=== PATIENT | male | born 1940 | race Caucasian/White ===

== ENCOUNTER 2018-08-14 17:40 | Observation (INO) | payer MEDICARE, SELFPAY ==
[2018-08-14 17:44] VITALS: BP 116/63; PULSE 88; RESP 16; TEMP 36.9; O2SAT 96
--- NOTE | 2018-08-14 18:16 | DI.RAD.S_ITS ---
PROCEDURE: XR CHEST 2V INDICATIONS: pain TECHNIQUE: 2 views of the chest were acquired. COMPARISON: Left hip series from earlier same day. FINDINGS: Surgical changes and devices: None. Lungs and pleura: Lungs are clear. Likely small left apical pneumothorax is not well-visualized on this study. This was more conspicuous on comparison rib series. Mediastinum: Mediastinal contours are normal. Heart size is normal. Bones and chest wall: No suspicious bony abnormalities. Minimally displaced left eighth, ninth, and 10th rib fractures are better seen on dedicated rib series. Soft tissues appear unremarkable. IMPRESSION: Left eighth, ninth, and 10th rib fractures as well as likely small left apical pneumothorax are better evaluated and visualized on comparison left rib series from same day. Please see separate report for further details. Lungs are otherwise clear. Dictated by: Jaylen Wallis M.D. on 08/14/2018 at 19:48 Approved by: Jaylen Wallis M.D. on 08/14/2018 at 19:50
--- NOTE | 2018-08-14 18:42 | DI.RAD.S_ITS ---
PROCEDURE: XR RIBS LT 2V INDICATIONS: pain TECHNIQUE: 7 views of the left ribs were acquired. COMPARISON: None. FINDINGS: Surgical changes and devices: None. Bones and chest wall: Acute, minimally displaced left eighth, ninth, and 10th rib fractures. No other fractures or dislocations visualized. No suspicious bony lesions. Overlying soft tissues appear unremarkable. Lungs and pleura: The visualized lung appears clear. No pleural effusions are visible. A likely small apical left pneumothorax is visualized. IMPRESSION: Acute, minimally displaced fractures of the left eighth, ninth, and tenth ribs with likely small apical left pneumothorax. Dictated by: Jaylen Wallis M.D. on 08/14/2018 at 19:38 Approved by: Jaylen Wallis M.D. on 08/14/2018 at 19:42
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
[2018-08-14] MEDS: ACETAMINOPHEN 325 MG TABLET 650 MG PO (20:29)
--- NOTE | 2018-08-14 20:29 | DI.CT.S_ITS ---
PROCEDURE: CT CHEST WO CON INDICATIONS: rib fxs, ?pneumo on xr TECHNIQUE: Noncontrast 5 mm thick sections acquired from the pulmonary apices to the posterior costophrenic angles. 7 mm thick coronal and sagittal MIP reformats were then acquired. For radiation dose reduction, the following was used: automated exposure control, adjustment of mA and/or kV according to patient size. COMPARISON: None. FINDINGS: Image quality: Excellent. Lungs and pleura: No acute air space opacities. Small left pneumothorax predominantly noted over the lingula. No right pneumothorax. Small subpleural hematoma is overlying the site of rib fractures of the left 10th, ninth, and eighth ribs. There is a 2 cm noncalcified nodule noted on image 51, series 3 and a second noncalcified nodule, pleural-based seen on image 50, series 3. No septal thickening or nodularity. Central and peripheral airways are patent and normal in caliber. Mediastinum: Heart size is normal. Scattered atherosclerotic calcifications of the coronary arteries are noted.No pericardial effusion. No mediastinal adenopathy by size criteria. Thoracic aorta and central pulmonary arteries are normal in size. Esophagus is normal in caliber. No hiatal hernia. Bones and chest wall: No suspicious bony lesions. Diffuse osteopenia. No acute vertebral body compression fractures. Subchondral cystic changes involving both sides of the joint space of the bilateral sternoclavicular joints. No axillary or supraclavicular adenopathy by size criteria. Thyroid gland is unremarkable. Abdomen: Visualized upper abdominal solid organs and bowel loops appear normal in the absence of contrast. IMPRESSION: 1. Small left pneumothorax. 2. Left eighth, ninth, and tenth rib fractures. 3. There are two 6-mm noncalcified nodules in the left lower lobe. A followup chest CT in 6-12 months is recommended to document stability. Dictated by: Jaylen Wallis M.D. on 08/14/2018 at 21:57 Approved by: Jaylen Wallis M.D. on 08/14/2018 at 22:05
[2018-08-14] MEDS: LIDOCAINE PATCH 1 EACH ADH..PATCH TOP (20:56)
--- NOTE | 2018-08-14 20:57 | PC.NURSE ---
Large abrasion running length of spine, bruising noted Left posterior chest area.
[2018-08-14 22:35] VITALS: BMI 33.0
[2018-08-14 22:52] VITALS: BP 122/64; PULSE 72; RESP 20; O2SAT 95
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
[2018-08-14 23:39] LABS: Add Manual Diff / Slide Review NO; Basophils Absolute Auto 0 /uL (0-100); Basophils Percent Auto 0.3 % (0-2); Eosinophils Absolute Auto 0 /uL (0-450); Eosinophils Percent Auto 0.4 % (2-4); Hematocrit 49.2 % (41-53); Lymphocytes Absolute Auto 800 /uL (1100-4500); Lymphocytes Percent Auto 9.6 % (25-40); Mean Corpuscular HGB Conc 32.6 % (30-36); Mean Corpuscular Hemoglobin 30.6 PG (26-34); Monocytes Absolute Auto 600 /uL (0-900); Monocytes Percent Auto 7.5 % (3-14); Neutrophils Absolute Auto 6900 /uL (1500-7000); Neutrophils Percent Auto 82.2 % (50-75); Platelet Count 154 X10^3/uL (150-400); Red Blood Cell Count 5.24 X10^6/uL (4.5-5.9); Red Cell Distribution Width 13.8 % (11.6-14.8); White Blood Cell Count 8.4 X10^3/uL (4.5-11.0)
--- NOTE | 2018-08-14 23:40 | P.HP_ITS ---
History of Present Illness Date Patient Seen: 08/14/18 Time Patient Seen: 23:33 Chief complaint: Fell over backwards, back pain, thinks Fx rib Narrative: August Romo is a 69-year-old male patient with a history of coronary artery disease, hypertension, hyperlipidemia, diabetes and prostatic hypertrophy who presents to the ER for left chest wall following a fall on his boat. Patient provides a history having chronic ground in his boat with the deck at a steep angle on which he slipped striking his left chest on the setee. He reports the fall was accidental involve no prodromal symptoms. He denies loss consciousness or neck pain. He complains of left anterior lateral chest wall pain and sustained a whole large abrasion down his middle of his back. Reports no shortness of breath or cough. He has had no recent illness or cold symptoms, no fevers or chills, no nasal congestion or sore throat. He has had no chest pain or palpitations, denies shortness of breath cough or wheezing. He has left chest wall pain increasing with deep inspiration. He denies abdominal pain or flank pain and has no nausea vomiting, constipation or diarrhea. Has a history of prostatic hypertrophy but reports no urinary symptoms at this time. Upon arrival in the ER at 5:44 p.m. the patient was found to be afebrile with a temperature of 98.5?, heart rate of 88, blood pressure 116/63, respiratory rate of 16 and oxygen saturation 96% on room air. No labs are drawn while the patient was in the ER however did have a chest x-ray which identified fracture of the 8th 9th and 10th ribs. There was an incidental finding of 2 pleural- based 6 mm non calcified nodules left lower lobe. The patient subsequently underwent a chest CT with finding a small left pneumothorax. Dr. Good, general surgery was consulted by the ER staff who recommended no intervention for the pneumothorax. Patient is admitted related to pain management of rib fractures and monitoring of pneumothorax. Patient History Medical History Prostatic hypertrophy (Acute) CAD (coronary artery disease) (Chronic) Diabetes mellitus type II, non insulin dependent (Chronic) HTN (hypertension) (Chronic) Hyperlipidemia (Chronic) Surgical History H/O transurethral resection of prostate (Acute) Status post coronary artery stent placement (Resolved) Social History (Updated 08/14/18 @ 20:13 by Jinny Doyle PA-C) household members: children and none Smoking Status: Current every day smoker alcohol intake: current Family & Social History Social History: household members children,none Prior Living Arrangements House Safety & Behavioral: Feels Safe in Current Yes Environment Been Physically Hurt or No Threatened By a Person Suicidal Ideation Description None Tobacco & Substance use: Tobacco type cigars Smoking Status Current every day smoker alcohol intake current alcohol intake frequency 0-2 drinks per day Substance Use Type does not use Comment: The patient is presently single having been twice initially in 1984 and was a 2nd time for 6 months. Patient presently lives in a single family home and spends extended durations of time on his boat cruising. His parents are both . His father had type 1 diabetes and cardiac disease and from heart failure. His mother was a smoker and from lung cancer. He has 1 sister who 6 years ago from brain cancer. Smoking: Patient smoked 1-1/2 packs of cigarettes per day the for 20 years and then quit in 1983. For the last 4 years the patient has been smoking 1 cigar daily. Alcohol: The patient endorses consuming 1 mixed drink daily Substance use: The patient denies recreation pharmaceuticals or herbal or cannabis products. Advanced directives: The patient has no advanced directive however he wishes to be a FULL CODE. He designates his daughter to be his surrogate decision maker. Meds Home Medications Medication Instructions Recorded Confirmed Type aspirin 81 mg PO QPM 08/14/18 08/14/18 History ezetimibe 10 mg PO QPM 08/14/18 08/14/18 History hydrochlorothiazide 12.5 mg PO DAILY 08/14/18 08/14/18 History lisinopril 5 mg PO DAILY 08/14/18 08/14/18 History metformin 1,500 mg PO BID 08/14/18 08/14/18 History metoprolol tartrate 25 mg PO BID 08/14/18 08/14/18 History montelukast 10 mg PO QPM 08/14/18 08/14/18 History oxybutynin chloride 5 mg PO QPM 08/14/18 08/14/18 History rosuvastatin 40 mg PO QPM 08/14/18 08/14/18 History tamsulosin 0.4 mg PO QPM 08/14/18 08/14/18 History Allergies Allergy/AdvReac Type Severity Reaction Status Date / Time No Known Drug Allergies Allergy Verified 08/14/18 20:55 Review of Systems Review of Systems All systems reviewed & are unremarkable except as noted in HPI and below Exam Vital Signs (past 8 hours): - 08/14/18 17:44 08/14/18 22:52 Temperature 98.5 F Pulse Rate 88 72 Respiratory Rate 16 20 Blood Pressure 116/63 122/64 Pulse Oximetry 96 95 Oxygen Delivery Method Room Air Narrative Exam Narrative: GENERAL APPEARANCE: well developed, overweight male with BMI of 33.1, afebrile and in no acute distress. HEAD: Normocephalic, atraumatic, no scalp lesions. EYES: pupils equal, round, reactive to light and accommodation, sclera non- icteric, extraocular movement intact. EARS: normal external structures, no ear pain NOSE: sinuses non tender to percussion, no rhinorrhea ORAL CAVITY: mucosa moist without lesions or exudate, palate normal, tongue in midline. THROAT: normal, no erythema, no exudate, pharynx normal, uvula midline. NECK/THYROID: neck supple, no jugular venous distention, no carotid bruit, no thyromegaly, trachea midline. LYMPH NODES: no cervical or supraclavicular lymphadenopathy. SKIN: warm and dry, no suspicious lesions, no rashes, good turgor. HEART: regular rate and rhythm, S1-S2 without murmur, no rubs or gallops, brisk capillary refill, no edema LUNGS: clear to auscultation bilaterally, no coarseness crackles or wheezing, no cough present CHEST: Pain on palpation anterior axillary line over 8 9th and 10th ribs, pain with deep inspiration, lidocaine patch in place posterior left chest- repositioned, symmetrical movement, no accessory muscle use ABDOMEN: Soft, no distention, no epigastric or abdominal tenderness on palpation, no guarding or peritoneal signs, no organomegaly, no flank or suprapubic tenderness, active bowel tones. BACK: Normal curvature, large abrasion 7 cm wide extending from T4-L1 without active bleeding, no step-offs EXTREMITIES: Contusion ecchymosis base of left thumb, moves all extremities, strength is 5/5 and symmetrical, well perfused. NEUROLOGIC: AAO x4, no focal neurologic deficits, cranial nerves II-XII grossly intact , motor strength normal upper and lower extremities, sensory exam intact to light touch, hearing grossly normal to speech. PSYCH: alert, cognitive function intact, good eye contact, stable mood with congruent affect Objective Labs Result Diagrams: 08/14/18 23:26 08/14/18 23:26 Assessment & Plan Assessment & Plan narrative: The patient was initially to be discharged home following consult with General surgery the patient however complained of more pain and admission was elected for pain management and monitoring of pne umothorax. 1. Acute left rib fractures -slip and fall on a boat striking his left chest. Patient did not immediately present for care. -No complaints of shortness of breath or cough -imaging finds nondisplaced fractures the 8th 9th and 10th left lateral ribs. -lidocaine patch applied in the emergency depart. -[place] 5/325, 1-2 tablets as needed every 4 hours for pain 2. Acute Left pneumothorax -estimated pneumothorax at 5% -patient asymptomatic with no shortness of breath or cough -patient typically uses CPAP at home for obstructive sleep apnea which will not be used to prevent worsening of pneumothorax. -will monitor pulse ox and respiratory status for progression of symptoms 3. Diabetes type 2 non insulin dependant without complications, chronic -patient has home medication metformin 1500 mg twice daily. -will obtain BMP to assess renal function, obtain hemoglobin A1c. -fingerstick blood sugars AC and HS -correctional insulin low range. 4. Hypertension, chronic, stable -will continue patient's home medications of metoprolol 50 mg daily, lisinopril 5 mg daily and hydrochlorothiazide 12.5 mg daily. -no complaints of dyspnea or cough -pneumothorax on CT exam -estimate pneumothorax to be approximately 5%. General surgery consult by ER provider who recommended no intervention. -will monitor breathing and oxygen saturation 5. Hyperlipidemia, chronic, presumed stable -Will continue patient's home medications of rosuvastatin 40 mg and ezetimibe 10 mg daily The patient is admitted due to severity of symptoms and ongoing monitoring. Expected length of stay to be less than 2 midnights. Quality VTE Deep Vein Thrombosis/Pulmonary Embolism Present on Admission: No
[2018-08-14 23:48] LABS: BUN Creatinine Ratio 29.2 (6-22); Blood Urea Nitrogen 35 mg/dL (9-20); Calcium 9.6 mg/dL (8.4-10.2); Carbon Dioxide 25 mmol/L (22-32); Chloride 98 mmol/L (98-107); Estimated Glomerular Filt Rate 58.6 mL/min (>60); Glucose 226 mg/dL (80-110); HEMOLYSIS 16 (0-50); Potassium 4.2 mmol/L (3.4-5.1); Sodium 137 mmol/L (137-145)
--- NOTE | 2018-08-15 | DI.RAD.S_ITS ---
PROCEDURE: XR CHEST 1V INDICATIONS: f/u pneumo seen on CT TECHNIQUE: One view of the chest was acquired. COMPARISON: [facility], CT, CT CHEST WO CON, 08/14/2018, 21:10. [facility], CR, XR RIBS LT 2V, 08/14/2018, 18:30. [facility], CR, XR CHEST 2V, 08/14/2018, 18:28. FINDINGS: Surgical changes and devices: None. Lungs and pleura: There is a trace right apical pneumothorax seen, which is slightly smaller than on the prior plain film. An incomplete inspiratory result is noted, causing a crowded appearance to the lung markings. No focal infiltrates are seen. No pneumothorax or significant pleural effusions are seen. Mediastinum: Mediastinal contours appear normal. Heart size is normal. Bones and chest wall: Mildly displaced left anterolateral rib fractures are again seen. No suspicious bony lesions. Overlying soft tissues appear unremarkable. IMPRESSION: Trace left apical pneumothorax, which is slightly decreased in size compared to the prior plain film. Left posterior lower rib fractures are seen. Dictated by: Robby Caraballo M.D. on 08/15/2018 at 8:52 Approved by: Robby Caraballo M.D. on 08/15/2018 at 8:54
[2018-08-15] MEDS: HYDROCODONE/ACET 5/325 TABLET 1 TAB PO (00:23)
[2018-08-15 00:53] VITALS: BP 120/55; PULSE 66; RESP 18; TEMP 36.8; O2SAT 97
[2018-08-15] MEDS: INSULIN ASPART 100 UNIT/ML INSULN PEN SUBCUT (00:56)
[2018-08-15 01:27] LABS: Hemoglobin A1C% w Est Avg Glu 6.6 % (4.0-6.0)
[2018-08-15] MEDS: HYDROCODONE/ACET 5/325 TABLET 2 TAB PO ×3 (04:33→13:18)
[2018-08-15 04:40] VITALS: BP 138/68; PULSE 67; RESP 18; TEMP 36.5; O2SAT 95
[2018-08-15 07:35] VITALS: BP 132/67; PULSE 62; RESP 14; TEMP 36.7; O2SAT 97
[2018-08-15] MEDS: LISINOPRIL 5 MG TABLET PO (08:25)
[2018-08-15] MEDS: METFORMIN HCL 500 MG TABLET 1500 MG PO (08:25)
[2018-08-15] MEDS: hydroCHLOROthiazide 12.5 MG CAPSULE PO (08:25)
[2018-08-15] MEDS: METOPROLOL IR 25 MG TABLET PO (08:25)
[2018-08-15] MEDS: SODIUM CHLORIDE 0.9% FLUSH 10 ML IV (08:25)
[2018-08-15 10:32] VITALS: O2SAT 96
--- NOTE | 2018-08-15 10:46 | P.DS_ITS ---
History of Present Illness Chief complaint: Fell over backwards, back pain, thinks Fx rib Narrative: August Romo is a 69-year-old male patient with a history of coronary artery disease, hypertension, hyperlipidemia, diabetes and prostatic hypertrophy who presents to the ER for left chest wall following a fall on his boat. Patient provides a history having chronic ground in his boat with the deck at a steep angle on which he slipped striking his left chest on the setee. He reports the fall was accidental involve no prodromal symptoms. He denies loss consciousness or neck pain. He complains of left anterior lateral chest wall pain and sustained a whole large abrasion down his middle of his back. Reports no shortness of breath or cough. He has had no recent illness or cold symptoms, no fevers or chills, no nasal congestion or sore throat. He has had no chest pain or palpitations, denies shortness of breath cough or wheezing. He has left chest wall pain increasing with deep inspiration. He denies abdominal pain or flank pain and has no nausea vomiting, constipation or diarrhea. Has a history of prostatic hypertrophy but reports no urinary symptoms at this time. Upon arrival in the ER at 5:44 p.m. the patient was found to be afebrile with a temperature of 98.5?, heart rate of 88, blood pressure 116/63, respiratory rate of 16 and oxygen saturation 96% on room air. No labs are drawn while the patient was in the ER however did have a chest x-ray which identified fracture of the 8th 9th and 10th ribs. There was an incidental finding of 2 pleural- based 6 mm non calcified nodules left lower lobe. The patient subsequently underwent a chest CT with finding a small left pneumothorax. Dr. Good, general surgery was consulted by the ER staff who recommended no intervention for the pneumothorax. Patient is admitted related to pain management of rib fractures and monitoring of pneumothorax. Discharge Providers Date of admission: 08/14/18 22:16 Discharge Date: 08/15/18 Consults: 08/14/18 22:56 Consult to Discharge Planning Routine Comment: 08/14/18 23:06 Consult to Respiratory Therapy Evaluate & Treat Comment: smokes 2 cigars/day Physician Instructions: Evaluate and treat Consult to Customer Operations Intern Routine Comment: assess needs at d/c 08/14/18 23:42 Consult to Respiratory Therapy Evaluate & Treat Comment: MYKEL, uses CPAP, NO CPAP at this time due ot pneumo Physician Instructions: Evaluate and treat Discharge provider: Pedro Ogden MD Summary Discharge Diagnosis: 1. Acute traumatic fractures of the left 8, 9 and 10th ribs 2. Acute left lung pneumothorax secondary to rib fractures Hospital Course: Patient admitted for overnight observation stay due to small pneumothorax associated with rib fractures from ground level fall. He was stabl e overnight. Follow-up chest x-ray the following morning showed improvement of the small pneumothorax with only trace remaining air leak in the left apex. He is doing well other than pain related to the rib fractures. He will take hydrocodone as needed for severe pain and otherwise take Tylenol as needed. He is cautioned not to drive or operate machinery while on hydrocodone. He will follow up with PCP next week. Status at Discharge Cognitive/behavioral status at discharge: oriented Functional status at discharge: independent ambulation Time Spent with Patient Less than 30 minutes Exam Vital Signs (past 8 hours): - 08/15/18 04:40 08/15/18 07:35 08/15/18 10:32 Temperature 97.7 F 98.0 F Pulse Rate 67 62 Respiratory Rate 18 14 Blood Pressure 138/68 132/67 Pulse Oximetry 95 97 96 Oxygen Delivery Method Room Air Objective Labs Result Diagrams: 08/14/18 23:26 08/14/18 23:26 Labs: Laboratory Results - last 24 hr 08/14/18 08/14/18 08/14/18 23:26 23:26 23:30 WBC 8.4 RBC 5.24 Hgb 16.0 Hct 49.2 MCV 94.0 MCH 30.6 MCHC 32.6 RDW 13.8 Plt Count 154 Neut % (Auto) 82.2 H Lymph % (Auto) 9.6 L [place] % (Auto) 7.5 Eos % (Auto) 0.4 L Baso % (Auto) 0.3 Neut # (Auto) 6900 Lymph # (Auto) 800 L [place] # (Auto) 600 Eos # (Auto) 0 Baso # (Auto) 0 Sodium 137 Potassium 4.2 Chloride 98 Carbon Dioxide 25 BUN 35 H Creatinine 1.20 Estimated GFR 58.6 L BUN/Creatinine Ratio 29.2 H Glucose 226 H Hemoglobin A1c 6.6 H Calcium 9.6 Discharge Plan Discharge Plan Patient Disposition: Home Discharge Med Rec/Prescriptions Prescriptions: New hydrocodone-acetaminophen 5-325 mg Tablet See Rx Instructions .ROUTE .COMPLEX PRN (Reason: Pain, Severe (7-10)) Qty: 30 RF: 0 Continued metformin 1,000 mg Tablet 1,500 mg PO BID RF: 0 ezetimibe 10 mg Tablet 10 mg PO QPM RF: 0 tamsulosin 0.4 mg Capsule 0.4 mg PO QPM RF: 0 oxybutynin chloride 5 mg Tablet Extended Release 24hr 5 mg PO QPM RF: 0 montelukast 10 mg Tablet 10 mg PO QPM RF: 0 lisinopril 5 mg Tablet 5 mg PO DAILY RF: 0 rosuvastatin 40 mg Tablet 40 mg PO QPM RF: 0 hydrochlorothiazide 12.5 mg Tablet 12.5 mg PO DAILY RF: 0 aspirin 81 mg Tablet,Delayed Release (Dr/Ec) 81 mg PO QPM RF: 0 metoprolol tartrate 50 mg tablet 25 mg PO BID Qty: 60 RF: 0 Provider Discharge Instructions Diet: Diet as Tolerated Visit Report/Discharge Packet Instructions: DI for Pneumothorax, DI for Rib Fracture, Hydrocodone/Acetaminophen (By mouth) Discharge Data Attending Provider: August Mcfadden Admit Date/Time: 08/14/18 22:16 Quality VTE Deep Vein Thrombosis/Pulmonary Embolism Present on Admission: No
--- NOTE | 2018-08-15 14:42 | PC.NURSE ---
Addendum entered by Andie Fairbanks R.N. 08/15/18 14:58: Taken out to [facility] by nursing staff. Original Note: Discharge: IV dc'd intact. Reviewed all d/c instructions thoroughly. Given 2 scripts (Metoprolol and Vicodin) and medicated with pain meds after lunch. Reviewed DI education info on Pneumothorax and Rib Fx. Instructed to call Friday to schedule follow up with PCP within the week. Instructed to call 911 or return to hospital w/difficulty breathing, uncontrolled pain, s/sx infection or any other concerns. Plan is to take [employer] taxi to [facility] to fill scripts, then home to [facility]. Will take down to meet cab in about 10 minutes.
--- NOTE | 2018-08-15 16:21 | CM.DANOTE ---
DCP/Assessment: Reviewed chart. Patient is a 77yr old male admitted to [facility] after fall. No PCP listed. Primary payor is 1)Medicare 2)[facility]. Attempted to meet with patient this afternoon. Per notes, patient fell on his boat causing rib fractures/pneumothorax. At time of attempted visit patient had already discharged home without any potential needs. P: Home today. 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 No History Provided By Patient Medical Record Prior Living Arrangements House Household Members children none Independent with ADL's Yes Is patient alert and oriented? Yes Caregiver for Another No Barriers to Discharge No Discharge Plan Home Transportation Arrangement Family to provide transport home. Referrals Initiated None needed Review Status In Process Next Review Type Continued Stay Review
== END 2018-08-15 14:59 | disposition home or self-care (01) ==
LOC: ED 22:12 → AC 22:17
PROVIDERS: Admitting Provider Nurse Practitioner Adult Health; Emergency Provider Internal Medicine; Visit Provider Nurse Practitioner Adult Health
DX: S22.42XA Multiple fractures of ribs, left side, initial encounter for closed fracture (principal); M54.89 Other dorsalgia; J93.83 Other pneumothorax; W01.190A Fall on same level from slipping, tripping and stumbling with subsequent striking against furniture, initial encounter; I25.10 Atherosclerotic heart disease of native coronary artery without angina pectoris; E11.9 Type 2 diabetes mellitus without complications; I10 Essential (primary) hypertension; E78.5 Hyperlipidemia, unspecified; F17.210 Nicotine dependence, cigarettes, uncomplicated; Z79.4 Long term (current) use of insulin
CPT/HCPCS: 36415; 36591; 71045; 71046; 71100; 71250; 80048; 82962; 83036; 85025; 94760; 94762; 99282; 99284; G0378

== ENCOUNTER → 2019-05-31 08:43 | Outpatient (CLI) | payer MEDICARE, SELFPAY ==
--- NOTE | 2019-05-31 | DI.CT.S_ITS ---
PROCEDURE: CT ABDOMEN PELVIS WO/W CON INDICATIONS: Hematuria, unspecified TECHNIQUE: Optional 5 mm thick noncontrast images acquired from the diaphragm to the symphysis pubis. After the administration of intravenous contrast, 5 mm thick images acquired from the diaphragm to the symphysis pubis after a 10-minute delay. 2 mm thick coronal and sagittal reformats were then performed of the kidneys and ureters. For radiation dose reduction, the following was used: automated exposure control, adjustment of mA and/or kV according to patient size. COMPARISON: [facility], CT, CT CHEST WITHOUT CONTRAST, 05/24/2019, 9:20. [facility], CR, XR CHEST 2 VIEWS, 08/18/2018, 8:51. [facility], CR, XR CHEST 2 VIEWS, 01/08/2019, 1:40. , CT, CT CHEST WO CON, 08/14/2018, 21:10. , CR, XR CHEST 1V, 08/15/2018, 9:14. Outside Film, CR, XR CHEST 2 VIEWS, 05/18/2019, 8:35. FINDINGS: Image quality: Excellent. Lung bases: Lung bases are unchanged, with an exudative left-sided pleural effusion moderate in size, with perceptible pleural thickening and enhancement. A discrete left lung base mass is not seen but atelectasis at the left lower lobe adjacent to the effusion could obscure visualization of the mass. Heart size is normal. Urinary system: Both kidneys are normal in size, without hydronephrosis or nephrolithiasis on pre-contrast images. No perinephric fat stranding. There is normal bilateral renal enhancement. Renal calyces appear normal in morphology when filled with contrast. Opacified portions of both ureters demonstrate normal caliber. Bladder wall thickness is normal. No calcified bladder stones. Other solid organs: Liver is normal in size and enhancement. Gallbladder appears normal. Biliary system is non dilated. Pancreas enhances normally. Spleen is normal in size and enhancement. No adrenal nodules. Peritoneum and bowel: Bowel loops demonstrate normal wall thickness and caliber. No free fluid or air. Nodes and vessels: No retroperitoneal or mesenteric adenopathy by size criteria. Aorta and inferior vena cava are normal in size. Abdominal wall: No ventral hernias. Pelvis: No pathologic free pelvic fluid. No inguinal hernias or adenopathy. Bones: No suspicious bony lesions. No vertebral body compression fractures. IMPRESSION: 1. A previously present exudative left pleural effusion with mild pleural thickening and enhancement and enhancement is again seen. Thoracentesis for culture and sensitivity/cytology is recommended if this has not yet been performed. 2. A source of hematuria is not seen. There specifically is not identified urinary tract stone and no urothelial or renal cortical mass lesions. Dictated by: Bogdan Patel M.D. on 05/31/2019 at 11:50 Approved by: Bogdan Patel M.D. on 05/31/2019 at 12:01
[2019-05-31 09:35] LABS: BUN Creatinine Ratio 27.3 (6-22); Blood Urea Nitrogen 30 mg/dL (9-20); Calcium 9.4 mg/dL (8.4-10.2); Carbon Dioxide 28 mmol/L (22-32); Chloride 105 mmol/L (98-107); Estimated Glomerular Filt Rate > 60.0 mL/min (>60); Glucose 134 mg/dL (80-110); HEMOLYSIS < 15 (0-50); Potassium 5.1 mmol/L (3.4-5.1); Sodium 141 mmol/L (137-145)
== END ==
PROVIDERS: PCP Family Medicine; Referring Provider Specialist; Visit Provider Specialist
DX: R31.9 Hematuria, unspecified (principal); J90 Pleural effusion, not elsewhere classified
CPT/HCPCS: 36415; 74178; 80048; Q9967

== ENCOUNTER → 2020-01-17 14:08 | Outpatient (CLI) | payer MEDICARE, SELFPAY ==
--- NOTE | 2020-01-17 | DI.MRI.S_ITS ---
PROCEDURE: MR LUMBAR SPINE WO CON INDICATIONS: Low back pain TECHNIQUE: Noncontrast sagittal T1 spin echo and T2 fast echo, sagittal STIR, axial T1 and T2 fast spin echo through the lumbar spine. In cases with scoliosis, additional coronal T2 fast spin echo may be performed. COMPARISON: [facility] [place], CR, XR LUMBAR SPINE 2 OR 3 VIEWS, 01/10/2020, 9:08. FINDINGS: Image quality: Excellent. Alignment and Curvature: There is trace L1-L2, L2-L3 and L3-L4 retrolisthesis. There is trace L4-L5 anterolisthesis. Bone Marrow: Reactive endplate changes noted adjacent to the L3-L4 disc. No acute vertebral body compression fractures. Spinal Cord: Conus medullaris terminates at the T12-L1 disc level. Visualized cord demonstrates normal signal and size. Paraspinous Soft Tissues: No paravertebral masses. L1-L2: Loss of disc signal and height. Mild, diffuse disc bulge. Large central disc extrusion. Extruded disc material extends superiorly along the posterior margin of the L1 vertebral body to a infra-pedicular level. Moderate narrowing of the central canal. Mild bilateral neural foraminal narrowing. L2-L3: Loss of disc signal and height. Mild, diffuse disc bulge. Mild bilateral facet hypertrophy. Moderate narrowing of the central canal. Mild bilateral neural foraminal narrowing. No neural compression. L3-L4: Loss of disc signal and height. Moderate, diffuse disc bulge. Moderate facet and moderate ligamentum flavum hypertrophy. Severe narrowing of the central canal with compression of the nerve roots of the cauda equina. Severe bilateral neural foraminal narrowing with compression of the exiting L3 nerve roots. L4-L5: Fluid signal noted in the intervertebral disc space without cortical endplate erosions or subchondral marrow edema involving the L4 or L5 vertebral bodies. Fluid signal in the disc space likely represents chronic reactive change or could represent intervertebral disc space hemorrhage. Moderate bilateral facet hypertrophy. Mild ligamentum flavum hypertrophy. Moderate to severe narrowing of the central canal. Severe bilateral neural foraminal narrowing with compression of the exiting L4 nerve roots. L5-S1: Loss of disc signal. Minimal, diffuse disc bulge. Moderate right mild left facet hypertrophy. No central stenosis. Mild bilateral neural foraminal narrowing. No neural compression. IMPRESSION: 1. Multilevel degenerative disease. 2. Multilevel facet arthropathy. 3. Severe L3-L4 central canal stenosis with compression of the nerve roots of the cauda equina. 4. Severe bilateral L3-L4 and L4-L5 neural foraminal narrowing with compression of the exiting bilateral L3 nerve roots and exiting bilateral L4 nerve roots. 5. Fluid signal in the L4 intervertebral disc space without associated erosive change or marrow edema in the L4 and L5 vertebral bodies. Finding likely represents fluid related to chronic reactive change or could represent hemorrhage. Dictated by: Micheline Stewart MD, PhD on 01/17/2020 at 17:11 Approved by: Micheline Stewart MD, PhD on 01/17/2020 at 17:16
== END ==
PROVIDERS: PCP Family Medicine; Referring Provider Family Medicine; Visit Provider Orthopaedic Surgery
DX: M54.5 Low back pain (principal); M51.36 Other intervertebral disc degeneration, lumbar region; M47.816 Spondylosis without myelopathy or radiculopathy, lumbar region; M47.817 Spondylosis without myelopathy or radiculopathy, lumbosacral region; M48.061 Spinal stenosis, lumbar region without neurogenic claudication
CPT/HCPCS: 72148

== ENCOUNTER → 2020-03-13 15:54 | Outpatient (CLI) | payer MEDICARE, SELFPAY ==
--- NOTE | 2020-03-13 15:56 | DI.RAD.S_ITS ---
PROCEDURE: XR KNEE RT 3V INDICATIONS: swelling/pain after direct blow to knee cap, r/o fx TECHNIQUE: 3 views of the knee were acquired. COMPARISON: None. FINDINGS: Bones: No fractures or dislocations. No suspicious bony lesions. 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 Soft tissues: No joint effusion. No suspicious soft tissue calcifications. IMPRESSION: No fracture. No acute osseous lesion. If symptoms and/or clinical suspicion for pathology persists, further assessment with repeat radiographs (7-10 days) or advanced imaging (e.g. CT, MRI or bone scan) should be considered. Dictated by: Micheline Stewart MD, PhD on 03/13/2020 at 16:15 Approved by: Micheline Stewart MD, PhD on 03/13/2020 at 16:16
== END ==
PROVIDERS: PCP Family Medicine; Referring Provider Physician Assistant; Visit Provider Physician Assistant
DX: S89.91XA Unspecified injury of right lower leg, initial encounter (principal); W22.8XXA Striking against or struck by other objects, initial encounter
CPT/HCPCS: 73562

== ENCOUNTER → 2020-06-07 09:03 | Outpatient (CLI) | payer MEDICARE, SELFPAY | PROVIDERS: PCP Family Medicine; Visit Provider Specialist | DX: N39.0 Urinary tract infection, site not specified (principal); N40.1 Benign prostatic hyperplasia with lower urinary tract symptoms; N13.8 Other obstructive and reflux uropathy; R35.1 Nocturia | CPT/HCPCS: 51798; 81002; 87086; 99214 ==

== ENCOUNTER → 2022-10-16 10:56 | Outpatient (CLI) | payer MEDICARE, SELFPAY ==
[2020-12-27 15:45] VITALS: BMI 33.0
--- NOTE | 2022-10-16 11:00 | DI.CT.S_ITS ---
PROCEDURE: CT IVP A/P W/WO INDICATIONS: hematuria TECHNIQUE: Optional 5 mm thick noncontrast images acquired from the diaphragm to the symphysis pubis. After the administration of intravenous contrast, 5 mm thick images acquired from the diaphragm to the symphysis pubis after a 10-minute delay. 2 mm thick coronal and sagittal reformats were then performed of the kidneys and ureters. For radiation dose reduction, the following was used: automated exposure control, adjustment of mA and/or kV according to patient size. COMPARISON: [facility], CT, CT CHEST WITHOUT CONTRAST, 07/31/2020, 9:05. Merged With [facility], CT, CT ABDOMEN PELVIS WO/W CON, 05/31/2019, 9:53. FINDINGS: Image quality: Excellent. Lung bases: A thick rimmed, low-density pleural effusion is present at the left lung base which appears similar in size to the CT dated July 31, 2020. Probable rounded atelectasis is present at the left lung base, unchanged. The right lung base is clear. Urinary system: Both kidneys are normal in size, without hydronephrosis or nephrolithiasis on pre-contrast images. No perinephric fat stranding. There is normal bilateral renal enhancement. Renal calyces appear normal in morphology when filled with contrast. Opacified portions of both ureters demonstrate normal caliber. Bladder wall thickness is normal. No calcified bladder stones. Other solid organs: Liver is normal in size and enhancement. Gallbladder is unremarkable . Biliary system is non dilated. There is mild pancreatic atrophy. Spleen is normal in size and enhancement. No adrenal nodules. Peritoneum and bowel: Bowel loops demonstrate normal wall thickness and caliber. No free fluid or air. There is diffuse fat stranding throughout the mesenteric fat. Discrete mesenteric soft tissue nodules appreciated. Nodes and vessels: No retroperitoneal or mesenteric adenopathy by size criteria. Aorta and inferior vena cava are normal in size. There are scattered atheromatous calcifications throughout the aorta and iliac arteries bilaterally. Abdominal wall: No ventral hernias. Pelvis: No pathologic free pelvic fluid. No inguinal adenopathy. There are small bilateral fat containing inguinal hernias. Bones: No suspicious bony lesions. No vertebral body compression fractures. IMPRESSION: 1. No hydronephrosis, nephrolithiasis, hydroureter, or ureterolithiasis. No suspicious enhancing renal mass lesions. 2. Marked, diffuse mesenteric fat stranding. No mesenteric adenopathy visualized. No soft tissue nodules. Differential considerations include diffuse mesenteric panniculitis and neoplasm/omental caking. However, the lack of nodularity favors mesenteric panniculitis. 3. Loculated, chronic left pleural effusion and rounded atelectasis. Dictated by: Sahara Dye M.D. on 10/16/2022 at 15:07 Approved by: Sahara Dye M.D. on 10/16/2022 at 15:15
[2022-10-16 11:38] LABS: Blood Urea Nitrogen 28 mg/dL (9-20); Calcium 9.2 mg/dL (8.4-10.2); Carbon Dioxide 21 mmol/L (22-32); Chloride 108 mmol/L (98-107); Estimated Glomerular Filt Rate 50 mL/min (>60); Glucose 167 mg/dL (80-110); HEMOLYSIS < 15 (0-50); Potassium 3.9 mmol/L (3.4-5.1); Sodium 142 mmol/L (137-145)
== END ==
PROVIDERS: PCP Family Medicine; Referring Provider Specialist; Visit Provider Specialist
DX: Z01.812 Encounter for preprocedural laboratory examination (principal); R31.9 Hematuria, unspecified; J90 Pleural effusion, not elsewhere classified; J98.11 Atelectasis
CPT/HCPCS: 36415; 74178; 80048; Q9967

== ENCOUNTER → 2024-03-10 12:18 | Outpatient (CLI) | payer MEDICARE, SELFPAY ==
[2020-12-27 15:45] VITALS: BMI 33.0
--- NOTE | 2024-03-10 12:20 | DI.RAD.S_ITS ---
PROCEDURE: XR CHEST 2V INDICATIONS: COUGH TECHNIQUE: 2 views of the chest were acquired. COMPARISON: [facility], CR, XR CHEST 1V, 08/15/2018, 9:14. FINDINGS: Surgical changes and devices: None. Lungs and pleura: Lungs are clear. No pneumothorax. Moderate to large left pleural effusion. Mediastinum: Mediastinal contours are normal. Heart size is enlarged. Bones and chest wall: No suspicious bony abnormalities. Soft tissues appear unremarkable. IMPRESSION: Moderate to large left pleural effusion. Dictated by: Rivera Mary M.D. on 03/10/2024 at 16:06 Approved by: Rivera Mary M.D. on 03/10/2024 at 16:13
== END ==
PROVIDERS: PCP Family Medicine; Referring Provider Family Medicine; Visit Provider Family Medicine
DX: R05.1 Acute cough (principal); J90 Pleural effusion, not elsewhere classified; I51.7 Cardiomegaly
CPT/HCPCS: 71046

== ENCOUNTER → 2024-03-26 13:43 | Outpatient (CLI) | payer MEDICARE, SELFPAY ==
[2020-12-27 15:45] VITALS: BMI 33.0
--- NOTE | 2024-03-26 | PATH_ITS ---
Note [facility] Accession Number: [id number] TESTS RESULT FLAG UNITS REF RANGE LAB Clinician Provided Cytology Information No. of containers..01 Other (Miscellaneous) Source: PLEURAL FLUID DIAGNOSIS: PLEURAL FLUID NEGATIVE FOR MALIGNANT CELLS. THIS INTERPRETATION INCLUDES EVALUATION OF A CELL BLOCK. Pathologist ICD10: J90 Signed out by: Saida Herman MD, Pathologist NPI- [id number] Performed by: Joesph Buenrostro, Bin Operator ([facility]) Gross description: 01 40 CC, RED, CLOUDY RECEIVED FRESH IN BLUE CAP CONTAINER.VENICE /NAHUN 03/29/2024 1419 Local FLAG LEGEND: L-Low Normal,H-High Normal,LL-Alert Low,HH-Alert High <-Panic Low,>-Panic High,A-Abnormal,AA-Critical Abnormal Performed at: 01 =Z [facility] [address] [facility], [place] [address] Rivera Mott MD, Performed at: [address] [facility] [address], [place], [place] [id number] MD Rivera Mott MD Phone: [phone]
--- NOTE | 2024-03-26 | DI.RAD.S_ITS ---
PROCEDURE: XR CHEST 1V INDICATIONS: POST THORACENTISIS TECHNIQUE: One view of the chest was acquired. COMPARISON: [facility], US, US THORACENTESIS, 03/26/2024, 14:02. [facility], CR, XR CHEST 2 VIEWS, 06/20/2022, 14:50. [facility], CR, XR CHEST 2V, 03/10/2024, 12:20. [facility], CR, XR CHEST 1V, 08/15/2018, 9:14. FINDINGS: Surgical changes and devices: None. Lungs and pleura: Lungs are clear on the right and chronically scarred with chronic elevation of the left diaphragm. Previously present stable subpulmonic left pleural effusions, no pneumothorax. Mediastinum: Mediastinal contours appear normal. Heart size is normal. Bones and chest wall: No suspicious bony lesions. Overlying soft tissues appear unremarkable. IMPRESSION: Chronic lung scarring and pleural scarring left lower lobe. No pneumothorax after left-sided thoracentesis. Dictated by: Bogdan Patel M.D. on 03/26/2024 at 15:03 Approved by: Bogdan Patel M.D. on 03/26/2024 at 15:05
--- NOTE | 2024-03-26 13:44 | DI.US.S_ITS ---
PROCEDURE: US THORACENTESIS INDICATIONS: PLEURAL EFFUSION TECHNIQUE: The indications, alternatives, benefits, risks, and complications of the procedure were explained to the patient. Written informed consent was obtained and placed in the chart. The chest was examined sonographically, and an appropriate site was chosen for thoracentesis. The skin was prepared and draped in the usual sterile fashion, and 1% lidocaine was infiltrated from the skin down through the pleural surface. A 19-gauge catheter-covered needle was then introduced into the pleural space, the catheter was advanced and the needle was withdrawn, and thereafter pleural fluid was aspirated. The catheter was then removed and a dressing was applied. COMPARISON: None. FINDINGS: Access site: Left hemithorax. Needle: One-Step centesis catheter with introducer needle. Fluid volume and description: 100 mL of clear vamshi fluid Fluid sent for diagnostic testing: As requested Medications: 1% lidocaine for local anaesthesia. Complications: None; post-procedural chest radiograph is pending to assess for pneumothorax. IMPRESSION: Successful ultrasound-guided thoracentesis. Dictated by: Pedro Jolley M.D. on 03/26/2024 at 16:32 Approved by: Pedro Jolley M.D. on 03/26/2024 at 16:33
[2024-03-26 15:34] LABS: Body Fluid Red Blood Cells 3279 /uL; Body Fluid Tot Nucleated Cells 88 /uL
[2024-03-26 15:38] LABS: Body Fluid Appearance HAZY; Body Fluid Clotted? NO CLOTS PRESENT; Body Fluid Color YELLOW
[2024-03-26 15:49] LABS: Lymphocytes Body Fluid 100 %; Neutrophils Body Fluid 0 %
== END ==
PROVIDERS: PCP Family Medicine; Referring Provider Family Medicine; Visit Provider Family Medicine
DX: J90 Pleural effusion, not elsewhere classified (principal)
CPT/HCPCS: 32555; 71045; 89051

== ENCOUNTER → 2024-06-22 13:06 | Outpatient (CLI) | payer MEDICARE, SELFPAY ==
[2020-12-27 15:45] VITALS: BMI 33.0
--- NOTE | 2024-06-22 13:16 | DIAB.MNT ---
Initial Diabetes Medical Nutrition Therapy Assessment Name: August Romo Date: 06/22/24 Time: 1:15-2 Dx: Type II Diabetes Provider: Kole Cook Learning Style: Listening/Reading Zach presents for initial DM visit. Diagnosed with Dm in 2008. Reports hgA1c has never been above 7% FH of DM with father and paternal grandparents. Reports his main concerns are his wt and creeping up hgA1c. Endorses h/o diabetes education in [place]. Cataracts reported, possible sx. Enjoys beer, but causes some wt gain and elevated BG per report. So limits. Over the last month, switched to wine and mixed drinks (Hermelinda Fermin-- rum, mix, +/- almond syrup) 1 per night. Reports a cut back on Metformin rx by Dr. Cunningham from 500mg x 1.5 BID to 500mg BID. Endorses HgA1c creeping up this last year, which may be r/t reduced metformin. States he would like to see his HgA1c <6.5%. Diet Recall: 8a: cottage cheese and cracker with V8 OR eggs +/- toast OR cheerios with berries and brown sugar with milk 1230p: shrimp cocktail OR PBJ sn: nuts or trail mix 6p: veggies, protein OR pea soup with ham x 2-3c with breadsticks or crackers water 4-5oz per day -- reports limiting water to reduce urinary output due to inconvenience V8 morning ETOH: wine or sugar mixed beverage 1x per day q other week halfnhalf with chocolate syrup Anthropometrics: Ht: 66 Wt: 171# reported Reports 270# 10 years ago Physical Activity: Reports sciatica pain down his legs. Does resistance band exercises 2x per day. States this helps relieve sciatica. Endorses SOB with walks, endorses emphysema. Self-Monitoring Blood Glucose: Checks FBG daily. Usually 110-140. Recent reading of 125mg/dl. Diabetes Medications: 500mg Metformin BID Pertinent Labs: HgA1c: 6.5% 08/2023 per referral 6.6% 02/2024 per referral 6.7% 05/2024 reported Past Medical History: (Last Updated 10/17/22 @ 10:34 by Jeancarlos Corona MD) Arthritis BPH w urinary obs/LUTS CAD (coronary artery disease) 1999 Diabetes mellitus type II, non insulin dependent Heart attack Hematuria HTN (hypertension) Hypercholesteremia Hyperlipidemia Nocturia Postprocedural bulbous urethral stricture Prostatic hypertrophy Right knee injury Nutrition Rx: Carbohydrates: Meal:30-45g Snack:15-30g Nutrition Diagnosis: - Inadequate fluid intake r/t limited water to try and reduce urinary output aeb pt report - Excessive CHO/kcal intake r/t mixed sugar beverage and chocolate syrup aeb diet recall Intervention: This participant was very receptive. Provided appropriate educational handouts. Discussed the following topics: Completed intake assessment. Discussed barriers to care. Hydration recs Kcal and CHO intake with sweetened beverages Balanced meals/snacks Safe physical activity Balancing lifestyle changes and quality of life Created SMART goals for patient self-care and success. Goals: Try adding water x 4-5 oz more in the early part of day Keep water on your boat Switch to 2% milk for chocolate beverage to reduce kcal Follow-up: BRUCE MCINTOSH follow-up in 4 weeks Erin Vences RDN, DAYNA Certified Diabetes Care and Assistant Farm Operations Manager P: [phone] Thank you for this referral
== END ==
PROVIDERS: PCP Family Medicine; Referring Provider Family Medicine
DX: E11.9 Type 2 diabetes mellitus without complications (principal); Z79.84 Long term (current) use of oral hypoglycemic drugs; Z71.3 Dietary counseling and surveillance
CPT/HCPCS: 97802

== ENCOUNTER → 2024-07-27 09:58 | Outpatient (CLI) | payer MEDICARE, SELFPAY ==
[2020-12-27 15:45] VITALS: BMI 33.0
--- NOTE | 2024-07-27 10:04 | DIAB.MNTFU ---
Follow-up Diabetes Medical Nutrition Therapy Assessment Name: August Romo Date: 07/27/24 Time: 10a Dx: Type II Diabetes Zach presents for follow-up DM visit. Personal goal of hgA1c <6.5% per report last visit. Overall, recent hgA1c results have been in ADA goal <7%. Zach would like to loose wt to personal goal of 160# to reduce mid section adiposity. Started drinking 16.9oz water per day, then was having to go q 30 mins. So stopped drinking that. Now down to limited water. Has h/o urinary concerns, has gone to urologist, though not recently. Tried chocolate syrup with milk, but had some issues with milk expiration. Avoiding buying milk right now. Weight up and thinks it may be from more appetizers and pulled pork intake. Excessive CHO intake for breakfast. Has noticed more urination over night lately, up to 3x per night. May be r/t more CHO with potatoes before bed recently. Reports father with DM, which he was curious about types of DM. Diet Recall: 8a: cheerios and raisins with half n half and brown sugar 1230p: pulled pork sandwich sn: nuts or trail mix 6p: ham and potatoes OR chx, HB egg, and Caesar salad water 4-5oz per day -- reports limiting water to reduce urinary output due to inconvenience V8 morning ETOH: wine or sugar mixed beverage 1x per day q other week halfnhalf with chocolate syrup Anthropometrics: Ht: 66 Wt: 175.5# 07/2024 reported 171# 06/2024 reported Reports 270# 10 years ago Physical Activity: Reports sciatica pain down his legs. Does resistance band exercises 2x per day. States this helps relieve sciatica. Endorses SOB with walks, endorses emphysema. Self-Monitoring Blood Glucose: Checks FBG daily. Recent readings: 144, 138, 127, 119, 135, 134, 128mg/dl. Most in goal or just barely elevated. Diabetes Medications: 500mg Metformin BID Pertinent Labs: HgA1c: 6.5% 08/2023 per referral 6.6% 02/2024 per referral 6.7% 05/2024 reported Past Medical History: (Last Updated 10/17/22 @ 10:34 by Jeancarlos Corona MD) Arthritis BPH w urinary obs/LUTS CAD (coronary artery disease) 1999 Diabetes mellitus type II, non insulin dependent Heart attack Hematuria HTN (hypertension) Hypercholesteremia Hyperlipidemia Nocturia Postprocedural bulbous urethral stricture Prostatic hypertrophy Right knee injury Nutrition Rx: Carbohydrates: Meal:30-45g Snack:15-30g Nutrition Diagnosis: - Inadequate fluid intake r/t limited water to try and reduce urinary output aeb pt report- continued - Excessive CHO/kcal intake r/t half n half intake and cereal intake aeb diet recall- new Intervention: This participant was very receptive. Provided appropriate educational handouts. Discussed the following topics: Hydration and encouraged discussion with PCP regarding urinary concerns Kcal and CHO intake Balanced meals/snacks Types of DM Realistic wt goals Impact on elevated BG on urination Created SMART goals for patient self-care and success. Goals: Try adding water x 4-5 oz more in the early part of day- met Keep water on your boat- met Switch to 2% milk for chocolate beverage to reduce kcal - met Chat with PCP about a urology referral- new Go back to cottage cheese breakfast with cracker- new Return to protein and veggies at dinner- new Follow-up: BRUCE MCINTOSH follow-up in 3-4 weeks. Due for labs and PCP in August. Erin Vences RDN, DAY[facility] Certified Diabetes Care and Shading Painter P: [phone] Thank you for this referral
== END ==
LOC: DIET 09:59
PROVIDERS: PCP Family Medicine; Referring Provider Family Medicine
DX: E11.9 Type 2 diabetes mellitus without complications (principal); Z71.3 Dietary counseling and surveillance; Z79.84 Long term (current) use of oral hypoglycemic drugs
CPT/HCPCS: 97803

== ENCOUNTER → 2024-08-31 13:52 | Outpatient (CLI) | payer MEDICARE, SELFPAY ==
[2020-12-27 15:45] VITALS: BMI 33.0
--- NOTE | 2024-08-31 13:53 | DI.RAD.S_ITS ---
PROCEDURE: XR CHEST 2V INDICATIONS: CHAYITO crackles, hx of thoracentesis recent TECHNIQUE: 2 views of the chest were acquired. COMPARISON: [facility], CR, XR CHEST 2V, 03/10/2024, 12:20. [facility], CR, XR CHEST 1V, 03/26/2024, 14:34. FINDINGS: Surgical changes and devices: None. Lungs and pleura: Diffuse interstitial prominence. Stable scarring of the left lung base. Persistent streaky opacities of the bilateral lung bases. No new dense consolidation. No pneumothorax. No substantial pleural effusion. Mediastinum: Mediastinal contours are normal. Heart size is normal. Bones and chest wall: No suspicious bony abnormalities. Soft tissues appear unremarkable. IMPRESSION: Persistent streaky bibasilar opacities and left lung base scarring. No significant pleural effusion. No pneumothorax seen. Dictated by: Jaylen Wallis M.D. on 08/31/2024 at 14:35 Approved by: Jaylen Wallis M.D. on 08/31/2024 at 14:44
== END ==
PROVIDERS: PCP Family Medicine; Referring Provider Chiropractor; Visit Provider Chiropractor
DX: J18.9 Pneumonia, unspecified organism (principal); Z98.890 Other specified postprocedural states
CPT/HCPCS: 71046

== ENCOUNTER → 2024-09-01 10:01 | Outpatient (CLI) | payer MEDICARE, SELFPAY ==
[2020-12-27 15:45] VITALS: BMI 33.0
--- NOTE | 2024-09-01 10:05 | DIAB.MNTFU ---
Follow-up Diabetes Medical Nutrition Therapy Assessment Name: August Romo Date: 09/01/24 Time: 10a Dx: Type II Diabetes Zach presents for follow-up DM visit. Personal goal of hgA1c <6.5% per report last visit. Overall, recent hgA1c results have been in ADA goal <7%. Zach would like to loose wt to personal goal of 160# to reduce mid section adiposity. Reports recent lung infection. Denies any steroid tx. Antibiotics rx'd x 10 days per reprot. Thought PCP was August but actually September 13. Will complete labs before. Endorses some concern for last few days of FBG in the 140-141 range. Not particularly concerning to this RD, however is higher than his recent numbers. Denies any difference in eating outside of Friday pot luck. Denies any changes to sleep or stress. Baseline low water intake due to excessive urination with higher water intake. With V8, milk in cereal, and <5oz water per day will urinate 2-3 x per day and 2x at night. With more water, endorses urinary frequency q 30-60 mins. Endorses pale to medium color of urine. Denies any dark coloring. Tried cooking swordfish but was tough, seems overcooked. Has a food thermometer. Wt down from last visit by a reported 6.8#. Diet Recall: 8a: 1c cheerios and 1/4c raisins and 1/3c blueberries with half n half and 1TBS brown sugar OR cottage cheese with crackers 1230-2p: nothing OR shrimp cocktail OR PBJ sn: nothing or nuts or trail mix 6p: fish with carrots and peas OR chx, HB egg, parm and salad sometimes snacks on dried fruit or recently malt balls water 4-5oz per day or less -- reports limiting water to reduce urinary output due to inconvenience V8 morning ETOH: wine or sugar mixed beverage 1x per day 1x per week halfnhalf with chocolate syrup Anthropometrics: Ht: 66 Wt: 168.7# 08/2024 reported today 175.5# 07/2024 reported 171# 06/2024 reported Reports 270# 10 years ago Physical Activity: Reports sciatica pain down his legs. Does resistance band exercises 2x per day (morning and night). States this helps relieve sciatica. Endorses SOB with walks, endorses emphysema. Self-Monitoring Blood Glucose: Checks FBG daily. Recent readings: 126, 135, 119, 130, 141, 140, 141mg/dl. FBG in goal or 11 points within goal. Last visit readings: 144, 138, 127, 119, 135, 134, 128mg/dl. Diabetes Medications: 500mg Metformin BID Pertinent Labs: HgA1c: 6.5% 08/2023 per referral 6.6% 02/2024 per referral 6.7% 05/2024 reported Past Medical History: (Last Updated 10/17/22 @ 10:34 by Jeancarlos Corona MD) Arthritis BPH w urinary obs/LUTS CAD (coronary artery disease) 1999 Diabetes mellitus type II, non insulin dependent Heart attack Hematuria HTN (hypertension) Hypercholesteremia Hyperlipidemia Nocturia Postprocedural bulbous urethral stricture Prostatic hypertrophy Right knee injury Nutrition Rx: Carbohydrates: Meal:30-45g Snack:15-30g Nutrition Diagnosis: - Inadequate fluid intake r/t limited water to try and reduce urinary output aeb pt report- continued - Excessive CHO intake r/t raisins, berries, brown sugar and cereal- continued - Excessive kcal intake r/t half n half intake and cereal intake aeb diet recall- continued Intervention: This participant was very receptive. Provided appropriate educational handouts. Discussed the following topics: CHO portions at breakfast and adjustments Wt changes Urinary concerns and hydration, encouraged PCP discussion prn Factors that can impact FBG: activity, stress, infection, food, hydration, sleep, state of dm Cooking fish techniques and internal temp to reduce over cooking Created SMART goals for patient self-care and success. Goals: Chat with PCP about a urology referral- in progress Go back to cottage cheese breakfast with cracker- met Return to protein and veggies at dinner- met Reduce raisins and brown sugar at breakfast- new Try extra band exercises at night- new Try cooking fish to 145F internal temp- new Follow-up: BRUCE MCINTOSH follow-up in 6-8 weeks. PCP visit in September. Erin Vences RDN, [facility] Certified Diabetes Care and Shaping Machine Operator P: [phone] Thank you for this referral
== END ==
PROVIDERS: PCP Family Medicine; Referring Provider Family Medicine
DX: E11.65 Type 2 diabetes mellitus with hyperglycemia (principal); Z71.3 Dietary counseling and surveillance; Z79.84 Long term (current) use of oral hypoglycemic drugs
CPT/HCPCS: 97803

== ENCOUNTER → 2024-10-12 09:58 | Outpatient (CLI) | payer MEDICARE, SELFPAY ==
[2020-12-27 15:45] VITALS: BMI 33.0
--- NOTE | 2024-10-12 10:05 | DIAB.FU ---
Follow-up Diabetes Education Assessment Name: August Romo Date: 10/12/24 Time: [id number] Dx: Type II Diabetes Zach presents for follow-up DM visit. Personal goal of hgA1c <6.5% per previous report. Recent hgA1c of 6.6%. Zach would like to loose wt to personal goal of 160# to reduce mid section adiposity. Getting tired of salads and chicken. Went on a boat trip and switched to sausages, buns and potato salad, resulted in wt gain. Decided to switch dressing and salad greens, and feel more comfortable with salads again. Recent purchased sesame oil, open to stir salmeron. UTD on eye appts. Does not check feet. Wears slippers, does not go barefoot. Denies any foot concerns, ie neuropathy or loss of sensation. No cereal lately. used up raisins and then did not re-buy. Diet Recall: 8a: cottage cheese with crackers 1230-2p: nothing OR shrimp cocktail OR PBJ sn: nothing or nuts or trail mix 6p: protein salad water 4-5oz per day or less -- reports limiting water to reduce urinary output due to inconvenience V8 morning ETOH: wine or sugar mixed beverage 1x per day 0-1x per week halfnhalf with chocolate syrup Anthropometrics: Ht: 66 Wt: 174.7# 10/2024 reported 168.7# 08/2024 reported 175.5# 07/2024 reported 171# 06/2024 reported Reports 270# 10 years ago Physical Activity: Reports improved sciatica pain and therefore has reduced resistance band exercises. Notices more walking while on boat trips and considering more walking. Self-Monitoring Blood Glucose: Checks FBG daily. Recent readings: 113, 123, 128, 124, 129, 127, 121 (all in goal) Last visit readings: 126, 135, 119, 130, 141, 140, 141mg/dl. Diabetes Medications: 500mg Metformin BID Pertinent Labs: HgA1c: 6.5% 08/2023 per referral 6.6% 02/2024 per referral 6.7% 05/2024 reported 6.6% 10/2024 reported Past Medical History: (Last Updated 10/17/22 @ 10:34 by Jeancarlos Corona MD) Arthritis BPH w urinary obs/LUTS CAD (coronary artery disease) 1999 Diabetes mellitus type II, non insulin dependent Heart attack Hematuria HTN (hypertension) Hypercholesteremia Hyperlipidemia Nocturia Postprocedural bulbous urethral stricture Prostatic hypertrophy Right knee injury Intervention: This participant was very receptive. Provided appropriate educational handouts. Discussed the following topics: Wt changes and wt management strategies Variety in veggies Physical activity wt and BG goals Foot health and DM Reducing Dm complication risks Created SMART goals for patient self-care and success. Goals: Reduce raisins and brown sugar at breakfast- met Try extra band exercises at night- d/c Try cooking fish to 145F internal temp- in progress Try stir salmeron with sesame oil- new Consider walking 2x per week- new Follow-up: BRUCE MCINTOSH follow-up prn. Encouraged him to call or message RD with questions or follow-up needs prn. He agreed. overall, hgA1c in goal. Working on wt loss and managing Dm well. Erin Vences RDN, [facility] Certified Diabetes Care and Railroad Construction Director P: [phone] Thank you for this referral
== END ==
LOC: DIET 09:58
PROVIDERS: PCP Family Medicine; Referring Provider Family Medicine
DX: E11.9 Type 2 diabetes mellitus without complications (principal); Z71.3 Dietary counseling and surveillance; Z79.84 Long term (current) use of oral hypoglycemic drugs
CPT/HCPCS: G0108